=== PATIENT | female | born 1980 | race Caucasian/White ===

== ENCOUNTER → 2023-04-21 09:15 | Outpatient (REF) | payer OTHER, SELFPAY | LOC: WDC 09:15 | PROVIDERS: ATTENDING PHYSICIAN Nurse Practitioner | DX: N63.10 Unspecified lump in the right breast, unspecified quadrant (principal); N63.14 Unspecified lump in the right breast, lower inner quadrant | CPT/HCPCS: 76642; 77062; 77066 ==

== ENCOUNTER → 2024-08-23 09:23 | Outpatient (REF) | payer OTHER, SELFPAY | LOC: EMG 09:23 | PROVIDERS: ATTENDING PHYSICIAN Nurse Practitioner | DX: R20.0 Anesthesia of skin (principal); D17.30 Benign lipomatous neoplasm of skin and subcutaneous tissue of unspecified sites | CPT/HCPCS: 76604; 95886; 95909 ==

== ENCOUNTER → 2024-09-01 08:03 | Outpatient (REF) | payer OTHER, SELFPAY | LOC: RAD 08:03 | PROVIDERS: ATTENDING PHYSICIAN Nurse Practitioner | DX: M25.511 Pain in right shoulder (principal) | CPT/HCPCS: 73030 ==